=== PATIENT | male | born 1985 | race Caucasian/White ===

== ENCOUNTER 2023-12-29 14:15 | Inpatient (IN) | payer OTHER ==
[2023-12-29 14:56] VITALS: BMI 21.8
[2023-12-29] MEDS ORDERED: MAGNESIUM HYDROX 2400MG/30ML ORAL SUSPENSION 30 ML CUP PO PRN (17:02)
[2023-12-29] MEDS ORDERED: IBUPROFEN 400 MG TABLET (FP) PO PRN (17:02)
[2023-12-29] MEDS ORDERED: ONDANSETRON *ODT* 4 MG TABLET SL PRN (17:02)
[2023-12-29] MEDS ORDERED: POLYETHYLENE GLYCOL (HEALTHYLAX) 3350 17 GM PACKET PO PRN (17:02)
[2023-12-29] MEDS ORDERED: IBUPROFEN 600 MG TABLET (FP) PO PRN (17:02)
[2023-12-29] MEDS ORDERED: BENZONATATE 200 MG CAPSULE PO PRN (17:02)
[2023-12-29] MEDS ORDERED: LOPERAMIDE HCL 2 MG CAPSULE PO PRN (17:02)
[2023-12-29] MEDS ORDERED: BENZOCAINE/MENTHOL (CHLORASEPTIC ) LOZENGE MM PRN (17:02)
[2023-12-29] MEDS ORDERED: ACETAMINOPHEN 325 MG TABLET (FP) PO PRN (17:02)
[2023-12-29] MEDS ORDERED: guaiFENesin 600 MG TABLET.ER (FP) PO PRN (17:02)
[2023-12-29] MEDS ORDERED: DICYCLOMINE HCL 10 MG CAPSULE PO PRN (17:02)
[2023-12-29] MEDS ORDERED: NALOXONE HCL 0.4 MG/ML VIAL IM PRN (17:02)
[2023-12-29] MEDS ORDERED: NALOXONE HCL (KLOXXADO) 8 MG SPRAY NS PRN (17:02)
[2023-12-29] MEDS ORDERED: BISMUTH SUBSALICYLATE 524 MG/30 ML PO PRN (17:02)
[2023-12-29] MEDS: MELATONIN 5 MG TABLETS PO SCH (22:03)
[2023-12-29] MEDS: METHOCARBAMOL 500 MG TABLET PO PRN (22:03)
[2023-12-29] MEDS: THIAMINE HCL 100 MG TABLET (FP) PO SCH (22:04)
[2023-12-29] MEDS: hydrOXYzine PAMOATE 25 MG CAPSULE (FP) PO PRN (22:04)
[2023-12-29] MEDS: diazePAM 5 MG TABLET PO SCH (22:46)
[2023-12-30] MEDS ORDERED: GABAPENTIN 400 MG CAPSULE PO SCH ×2 (05:15→14:48)
[2023-12-30] MEDS: methaDONE HCL 40 MG DISPERSABLE TABLET PO ONE (10:52)
[2023-12-30] MEDS: PRENATAL VITAMINS W/ FOLIC ACID TABLET (FP) PO SCH (10:52)
[2023-12-30 11:39] LABS: HEMOGLOBIN 11.6 GM/dL (11.7-16.9); MCH 27.7 pg (25.7-33.7); MCHC 32.3 g/dl (32.0-35.9); MEAN CELL VOLUME 85.5 fl (80-96); MEAN PLT VOLUME 6.4 fl (7.5-11.1); PLATELET COUNT 254 10^3/uL (134-434); RBC 4.21 M/mm3 (4.00-5.60); RDW 14.3 % (11.9-15.9)
[2023-12-30 11:48] LABS: CHLORIDE 104 mmol/L (98-107); POTASSIUM 4.6 mmol/L (3.5-5.1); SODIUM 137 mmol/L (136-145)
[2023-12-30 11:58] LABS: ALK PHOS 111 U/L (45-117); ANION GAP -1 mmol/L (4-13); BILIRUBIN,TOTAL 0.2 mg/dL (0.2-1); BLOOD UREA NITROGEN 14.6 mg/dL (7-18); CALCIUM 8.9 mg/dL (8.5-10.1); CO2 34 mmol/L (21-32); GLUCOSE,RANDOM 98 mg/dL (74-106); TOT PROT 6.7 g/dl (6.4-8.2)
[2023-12-30 12:00] LABS: CREATININE 0.8 mg/dL (0.55-1.3); SGOT/AST 24 U/L (15-37); SGPT/ALT 22 U/L (13-61)
[2023-12-30] MEDS ORDERED: GABAPENTIN 300 MG CAPSULE PO SCH (14:00)
[2023-12-30] MEDS: QUEtiapine FUMARATE 100 MG TABLET (FP) PO SCH (14:54)
[2023-12-30] MEDS: GABAPENTIN 400 MG CAPSULE PO SCH (15:11)
[2023-12-30] MEDS ORDERED: PRAZOSIN HCL 5 MG CAPSULE PO SCH (22:00)
[2023-12-30] MEDS: QUEtiapine FUMARATE 300 MG TABLET PO SCH (22:06)
[2023-12-30] MEDS: PRAZOSIN HCL 1 MG CAPSULE PO SCH (22:07)
[2023-12-31] MEDS: methaDONE HCL 40 MG DISPERSABLE TABLET PO SCH (05:15)
[2023-12-31] MEDS: diazePAM 5 MG TABLET PO SCH (05:15)
[2023-12-31] MEDS: diazePAM 5 MG TABLET PO PRN (20:09)
[2023-12-31] MEDS: PRAZOSIN HCL 5 MG CAPSULE PO SCH (22:18)
[2024-01-01] MEDS: diazePAM 5 MG TABLET PO SCH (05:26)
[2024-01-01] MEDS: MAG HYDROX/AL HYDROX/SIMETH 30 ML UNIT-DOSE CUP PO PRN (22:01)
[2024-01-02] MEDS: diazePAM 5 MG TABLET PO ONE (06:25)
[2024-01-02 09:41] VITALS: BP 137/76; PULSE 85; RESP 18; TEMP 97
== END 2024-01-02 09:57 | disposition home or self-care (01) | DRG 897 ==
LOC: YASAS 14:15 → Y6N 16:57
PROVIDERS: ADMIT Allergy & Immunology; ATTEND Surgery
PROC: HZ2ZZZZ Detoxification Services for Substance Abuse Treatment (ICD-10-PCS; principal; 2023-12-29)
DX: F10.230 Alcohol dependence with withdrawal, uncomplicated (principal); F11.20 Opioid dependence, uncomplicated; F14.20 Cocaine dependence, uncomplicated; F19.282 Other psychoactive substance dependence with psychoactive substance-induced sleep disorder; Z59.01 Sheltered homelessness; F17.210 Nicotine dependence, cigarettes, uncomplicated; F32.9 Major depressive disorder, single episode, unspecified; F43.10 Post-traumatic stress disorder, unspecified; D64.9 Anemia, unspecified; Z88.0 Allergy status to penicillin
CPT/HCPCS: 36415; 80053; 80305; 80307; 85027; 86780; 93005; 93010